=== PATIENT | male | born 1985 | race Caucasian/White ===

== ENCOUNTER 2019-05-22 20:05 | Emergency (ER) | payer OTHER ==
[2019-05-22] MEDS ORDERED: Sodium Chloride 0.9% 2.5 ML Syringe FLUSH PRN (20:37)
[2019-05-22] MEDS ORDERED: Sodium Chloride 0.9% 10 ML Syringe FLUSH PRN (20:37)
--- NOTE | 2019-05-22 20:37 | EDM.PDOC ---
<Lucas Kenyon - Last Filed: 05/22/19 22:02> ED HPI GENERAL MEDICAL PROBLEM - General Chief Complaint: Abdominal Pain Stated Complaint: ABDOMINAL PAIN Time Seen by Provider: 05/22/19 20:37 Source of Information: Reports: Patient History Limitations: Reports: No Limitations - History of Present Illness INITIAL COMMENTS - FREE TEXT/NARRATIVE: HISTORY AND PHYSICAL: History of present illness: Patient is a 34-year-old male presents to the ED with complaint of abdominal pain that began approximately 30 minutes prior to arrival to the ED. He states he was doing laundry when it started. He reports some shortness of breath but denies chest pain, abdominal pain, fevers, chills, nausea, vomiting, diarrhea, dysuria, hematuria. He denies significant past medical or surgery history. Review of systems: As per history of present illness and below otherwise all systems reviewed and negative. Past medical history: As per history of present illness and as reviewed below otherwise noncontributory. Surgical history: As per history of present illness and as reviewed below otherwise noncontributory. Social history: No reported history of drug or alcohol abuse. Family history: As per history of present illness and as reviewed below otherwise noncontributory. Physical exam: General: Patient sitting comfortably in no acute distress and nontoxic appearing HEENT: Atraumatic, normocephalic, pupils reactive, negative for conjunctival pallor or scleral icterus, mucous membranes moist, throat clear, neck supple, nontender, trachea midline. No meningeal signs. Lungs: Clear to auscultation, breath sounds equal bilaterally, chest nontender. Heart: S1S2, regular, negative for clicks, rubs, or overt murmur. Abdomen: Epigastric tenderness to palpation. Soft, nondistended. Negative for masses or hepatosplenomegaly. Negative for costovertebral tenderness. No rigidity, rebound, guarding. Pelvis: Stable nontender. Genitourinary: Deferred. Rectal: Deferred. Extremities: Atraumatic, negative for cords or calf pain. Neurovascular unremarkable. Neuro: Awake, alert, oriented. Cranial nerves II through XII unremarkable. Cerebellum unremarkable. Motor and sensory unremarkable throughout. Exam nonfocal. Notes: Patient states GI cocktail helped initially but pain returned. Diagnostics: CBC, CMP, Lipase, Troponin, UA CT Abdomen/pelvis w/ contrast Therapeutics: GI cocktail 1L NS IV Toradol 30mg IV Prescriptions: Impression: Abdominal pain Plan: [] Definitive disposition and diagnosis as appropriate pending reevaluation and review of above. abdomen Pain Score (Numeric/FACES): 10 - Related Data Allergies Allergy/AdvReac Type Severity Reaction Status Date / Time No Known Allergies Allergy Verified 05/22/19 20:32 Home Meds: Home Meds . [No Known Home Meds] 05/22/19 [History] Past Medical History - Past Health History Medical/Surgical History: Denies Medical/Surgical History Social & Family History - Family History Family Medical History: Noncontributory - Tobacco Use Smoking Status *Q: Never Smoker Second Hand Smoke Exposure: No - Caffeine Use Caffeine Use: Reports: Coffee - Recreational Drug Use Recreational Drug Use: No ED ROS GENERAL - Review of Systems Review Of Systems: ROS reveals no pertinent complaints other than HPI. ED EXAM, GI/ABD - Physical Exam Exam: See Below (see dictation) Course - Vital Signs Last Recorded V/S: Last Vital Signs Temp 35.5 C 05/22/19 20:55 Pulse 76 05/22/19 20:26 Resp 18 05/22/19 20:26 BP Pulse Ox 98 05/22/19 20:26 - Orders/Labs/Meds Orders: Active Orders 24 hr Category Date Time Status EKG Documentation Completion [RC] STAT Care 05/22/19 20:37 Active Sodium Chloride 0.9% [Saline Flush] Med 05/22/19 20:37 Active 10 ml FLUSH ASDIRECTED PRN Sodium Chloride 0.9% [Saline Flush] Med 05/22/19 20:37 Active 2.5 ml FLUSH ASDIRECTED PRN Saline Lock Insert [OM.PC] Stat Oth 05/22/19 20:37 Ordered Medication Orders Sodium Chloride (Saline Flush) 10 ml FLUSH ASDIRECTED PRN PRN Reason: Keep Vein Open Sodium Chloride (Saline Flush) 2.5 ml FLUSH ASDIRECTED PRN PRN Reason: Keep Vein Open Labs: Laboratory Tests 05/22/19 05/22/19 05/22/19 Range/Units 20:45 20:45 21:00 WBC 8.37 (4.0-11.0) K/uL RBC 4.95 (4.50-5.90) M/uL Hgb 14.9 (13.0-17.0) g/dL Hct 43.2 (38.0-50.0) % MCV 87.3 (80.0-98.0) fL MCH 30.1 (27.0-32.0) pg MCHC 34.5 (31.0-37.0) g/dL RDW Std Deviation 39.2 (28.0-62.0) fl RDW Coeff of Giovana 12 (11.0-15.0) % Plt Count 238 (150-400) K/uL MPV 11.30 (7.40-12.00) fL Neut % (Auto) 50.7 (48.0-80.0) % Lymph % (Auto) 39.2 (16.0-40.0) % [place] % (Auto) 6.7 (0.0-15.0) % Eos % (Auto) 2.6 (0.0-7.0) % Baso % (Auto) 0.8 (0.0-1.5) % Neut # (Auto) 4.2 (1.4-5.7) K/uL Lymph # (Auto) 3.3 H (0.6-2.4) K/uL [place] # (Auto) 0.6 (0.0-0.8) K/uL Eos # (Auto) 0.2 (0.0-0.7) K/uL Baso # (Auto) 0.1 (0.0-0.1) K/uL Nucleated RBC % 0.0 /100WBC Nucleated RBCs # 0 K/uL Sodium 142 (136-148) mmol/L Potassium 3.9 (3.5-5.1) mmol/L Chloride 103 (98-107) mmol/L Carbon Dioxide 28.3 (21.0-32.0) mmol/L BUN 14 (7.0-18.0) mg/dL Creatinine 0.9 (0.8-1.3) mg/dL Est Cr Clr Drug Dosing 124.34 mL/min Estimated GFR (MDRD) > 60.0 ml/min Glucose 116 H (74-106) mg/dL Calcium 9.4 (8.5-10.1) mg/dL Total Bilirubin 1.0 (0.2-1.0) mg/dL AST 32 (15-37) IU/L ALT 79 H (14-63) IU/L Alkaline Phosphatase 49 (46-116) U/L Troponin I < 0.050 (0.000-0.056) ng/mL Total Protein 7.9 (6.4-8.2) g/dL Albumin 4.1 (3.4-5.0) g/dL Globulin 3.8 (2.6-4.0) g/dL Albumin/Globulin Ratio 1.1 (0.9-1.6) Lipase 106 (73-393) U/L Urine Color YELLOW Urine Appearance CLEAR Urine pH 6.0 (5.0-8.0) Ur Specific [place] >= 1.030 (1.001-1.035) Urine Protein NEGATIVE (NEGATIVE) mg/dL Urine Glucose (UA) NEGATIVE (NEGATIVE) mg/dL Urine Ketones NEGATIVE (NEGATIVE) mg/dL Urine Occult Blood TRACE-INTACT H (NEGATIVE) Urine Nitrite NEGATIVE (NEGATIVE) Urine Bilirubin NEGATIVE (NEGATIVE) Urine Urobilinogen 0.2 (<2.0) EU/dL Ur Leukocyte Esterase NEGATIVE (NEGATIVE) Urine RBC 0-1 (0-2/HPF) Urine WBC 0-2 (0-5/HPF) Ur Epithelial Cells RARE (NONE-FEW) Urine Bacteria RARE (NEGATIVE) Meds: Medications Generic Name Dose Route Start Last Admin Trade Name Shantal PRN Reason Stop Dose Admin Sodium Chloride 10 ml 05/22/19 20:37 Saline Flush FLUSH ASDIRECTED PRN Keep Vein Open Sodium Chloride 2.5 ml 05/22/19 20:37 Saline Flush FLUSH ASDIRECTED PRN Keep Vein Open Discontinued Medications Generic Name Dose Route Start Last Admin Trade Name Shantal PRN Reason Stop Dose Admin Al Hydroxide/Mg Hydroxide 15 0 ml 05/22/19 20:41 05/22/19 20:51 ml/ Lidocaine HCl 5 ml PO 05/22/19 20:42 15 each ONETIME ONE Administration Sodium Chloride 1,000 mls @ 999 mls/hr 05/22/19 20:44 05/22/19 20:50 Normal Saline IV 05/22/19 21:44 999 mls/hr STAT ONE Administration Iopamidol 100 ml 05/22/19 21:49 05/22/19 22:01 Isovue-370 (76%) IVPUSH 05/22/19 21:50 100 ml ONETIME ONE Administration Ketorolac Tromethamine 30 mg 05/22/19 21:27 05/22/19 21:30 Toradol IVPUSH 05/22/19 21:28 30 mg ONETIME ONE Administration Morphine Sulfate 4 mg 05/22/19 21:42 05/22/19 22:21 Morphine IVPUSH 05/22/19 21:43 4 mg ONETIME ONE Administration Pantoprazole Sodium 80 mg 05/22/19 22:12 05/22/19 22:25 Protonix Iv IVPUSH 05/22/19 22:13 80 mg .BOLUS ONE Administration Departure - Departure Disposition: Home, Self-Care 01 Clinical Impression: Abdominal pain Qualifiers: Abdominal location: epigastric Qualified Code(s): R10.13 - Epigastric pain - Discharge Information Forms: ED Department Discharge Additional Instructions: The following information is given to patients seen in the emergency department who are being discharged to home. This information is to outline your options for follow-up care. We provide all patients seen in our emergency department with a follow-up referral. The need for follow-up, as well as the timing and circumstances, are variable depending upon the specifics of your emergency department visit. If you don't have a primary care physician on staff, we will provide you with a referral. We always advise you to contact your personal physician following an emergency department visit to inform them of the circumstance of the visit and for follow-up with them and/or the need for any referrals to a consulting specialist. The emergency department will also refer you to a specialist when appropriate. This referral assures that you have the opportunity for followup care with a specialist. All of these measure are taken in an effort to provide you with optimal care, which includes your followup. Under all circumstances we always encourage you to contact your private physician who remains a resource for coordinating your care. When calling for followup care, please make the office aware that this follow-up is from your recent emergency room visit. If for any reason you are refused follow-up, please contact the [facility] emergency department at and ask to speak to the emergency department charge nurse. [facility] [address] [place] [id number] Please eat a low-fat diet and call the clinic first thing in the morning to schedule a follow-up with one of our surgeons for further care and evaluation of this pain as it may be a gallbladder problem. Please fill the prescription you have been given and start medications tomorrow, Protonix, and use the tramadol only as needed for pain. Push hydration and avoid caffeine and alcohol as well as. Return to ER as needed and as discussed <Renee Treviño - Last Filed: 05/22/19 22:53> ED HPI GENERAL MEDICAL PROBLEM - History of Present Illness INITIAL COMMENTS - FREE TEXT/NARRATIVE: This is Dr. Treviño dictating an addendum note as I assumed care of this case at 10 PM. I reviewed all lab tests which are within normal limits and I have reviewed the CAT scan that was pending at the time of the PAs departure. It does reveal hepatic steatosis and a moderately distended gallbladder and some atypicality of the ascending colon but the patient has no right-sided abdominal pain. He currently is asymptomatic. I did discuss with him that he would need follow-up in the clinic as this may be the first of future episodes of gallbladder issues and he would need to have testing done on that as well as possible endoscopy. I did buy some to eat a low-fat diet and I will give him some tramadol and Protonix to take until he can follow-up in the clinic and have advised him on reasons to return. ED ROS GENERAL - Review of Systems Review Of Systems: ROS reveals no pertinent complaints other than HPI. Departure - Departure Time of Disposition: 22:52 Condition: Good
[2019-05-22] MEDS ORDERED: Sodium Chloride 0.9% 1,000 ML IV ONE (20:44)
[2019-05-22] MEDS: Alum Hydrox/Mag Hydrox/Simeth 15 ML, Lidocaine 2% 5 ML PO ONE ×4 (20:50→20:51)
[2019-05-22 21:16] LABS: BLOOD UREA NITROGEN,BUN 14 mg/dL (7.0-18.0); CARBON DIOXIDE,CO2 28.3 mmol/L (21.0-32.0); CHLORIDE,CL 103 mmol/L (98-107); GLUCOSE RANDOM 116 mg/dL (74-106); LIPASE 106 U/L (73-393); POTASSIUM,K 3.9 mmol/L (3.5-5.1); SODIUM,NA 142 mmol/L (136-148)
[2019-05-22] MEDS ORDERED: Ketorolac 30 MG/ML SDV IVPUSH ONE (21:27)
[2019-05-22] MEDS ORDERED: Morphine 4 MG/ML Syringe IVPUSH ONE (21:42)
[2019-05-22] MEDS ORDERED: Iopamidol 755 Mg/ML 100 ML Bottle IVPUSH ONE (21:49)
[2019-05-22] MEDS ORDERED: Pantoprazole 40 MG Vial IVPUSH ONE (22:12)
--- NOTE | 2019-05-22 22:31 | CT ---
INDICATION: Abdominal pain TECHNIQUE: CT abdomen and pelvis acquired with IV contrast. 100 mL of Isovue 370 administered. COMPARISON: None available FINDINGS: Lower chest: Unremarkable. Liver: Hepatomegaly measuring 22.4 cm craniocaudally. Hepatic steatosis. Spleen: Unremarkable. Pancreas: Unremarkable. Gallbladder and bile ducts: A moderately distended gallbladder. Adrenal glands: Unremarkable. Kidneys: No hydronephrosis. A 1.3 cm anterior right renal low-density lesion, demonstrating mildly higher than water attenuation. GI tract: No bowel obstruction. Normal appendix. Wall thickening of a short segment of ascending colon is at least partially related to under distention and peristalsis. No significant pericolonic changes. Vascular structures: Unremarkable. Lymph nodes: Unremarkable. Miscellaneous: No free air or significant free fluid. Pelvic Organs: Unremarkable. Bones: Unremarkable for age. IMPRESSION: No evidence of appendicitis, diverticulitis or bowel obstruction. Wall thickening of a short segment of the ascending colon is at least partially related to underdistention, however correlate clinically for a nonspecific segmental colitis and consider formal colonic evaluation. Hepatomegaly and hepatic steatosis. A mildly higher than water attenuation right renal low-density lesion which could represent a complicated cyst, however, follow-up evaluation with sonography and/or contrast MRI is recommended. Dictated by Kalyan Londono MD @ 05/22/2019 10:30:57 PM Please note that all CT scans at this facility use dose modulation, iterative reconstruction, and/or weight-based dosing when appropriate to reduce radiation dose to as low as reasonably achievable. Dictated by: Kalyan Londono MD @ 05/22/2019 22:31:09 (Electronically Signed)
== END 2019-05-22 23:06 | disposition home or self-care (01) ==
LOC: MW.ED 20:05
DX: R10.13 Epigastric pain (principal); K76.0 Fatty (change of) liver, not elsewhere classified; K82.8 Other specified diseases of gallbladder
CPT/HCPCS: 36415; 74177; 80053; 81001; 83690; 84484; 85025; 93005; 96361; 96374; 96375; 99285; A9270; C9113; J1885; J2270; J7040; Q9967; 99284